=== PATIENT | male | born 1980 | race Caucasian/White ===

== ENCOUNTER 2018-09-25 10:46 | Inpatient (IN) | payer MEDICAID ==
[~2018-09-25] VITALS: Ht 182.9 cm; Wt 64.4 kg
[2018-09-25 11:14] VITALS: Ht 182.9 cm; Wt 64.4 kg
--- NOTE | 2018-09-25 12:44 | NUR ---
PT PRESENTS TO ED WALK IN WITH C/O ABDOMINAL PAIN/RECTAL BLEEDING X3 DAYS. PT STS NO USE OF BLOOD THINNERS AND NO HX OF HEMORRHOIDS (FATHER HAD HX OF HEMORRHOIDS). STS THIS AM HAD DIARRHEA BUT PAST TWO BM'S WERE NORMAL. DENIES N/V. STATES BLOOD IS BRIGHT RED AND MODERATE AMOUNT. HAS HAD EPISODES OF SCANT RED BLOOD A FEW MONTHS AGO BUT NEVER THIS MUCH.
--- NOTE | 2018-09-25 13:21 | NUR ---
MSE COMPLETED BY DR COLEMAN. ASSISTED DR COLEMAN WITH RECTAL EXAM. PT TOLERATED.
[2018-09-25 13:45] LABS: microscopic required? NO
[2018-09-25 13:55] LABS: BASOPHIL % 1.2 % (0-2); PLATELET COUNT 145 x10^3mcL (130-400); RED CELL DISTRIBUTION WIDTH 12.7 % (11.5-14.5)
[2018-09-25 14:03] LABS: CALCIUM 8.8 mg/dL (8.5-10.1); CARBON DIOXIDE 27.9 mmol/L (21-32); CHLORIDE SERUM 103 mmol/L (98-107); CREATININE SERUM 0.8 mg/dL (0.7-1.3); GFR1 > 60 mL/min; GLUCOSE SERUM 89 mg/dL (74-106); POTASSIUM SERUM 3.8 mmol/L (3.5-5.1); SODIUM SERUM 137 mmol/L (136-145)
[2018-09-25 14:07] LABS: ALBUMIN 3.8 g/dL (3.4-5.0); ALKALINE PHOSPHATASE 61 U/L (46-116); ALT/SGPT 21 U/L (16-63); AST/SGOT 16 U/L (15-37); BILIRUBIN TOTAL 0.8 mg/dL (0.20-1.00); LIPASE 80 IU/L (73-393); TOTAL PROTEIN, SERUM 7.1 g/dL (6.4-8.2)
[2018-09-25 14:07] LABS: UA SPECIFIC GRAVITY <=1.005 (1.005-1.035); urine erythrocyte NEGATIVE (NEGATIVE)
--- NOTE | 2018-09-25 16:52 | NUR ---
REPORT GIVEN TO NOAM JAY. ALL QUESTIONS ADDRESSED.
[2018-09-25 17:01] LABS: MAGNESIUM 1.8 mg/dL (1.8-2.4); PHOSPHOROUS 3.1 mg/dL (2.5-4.9)
--- NOTE | 2018-09-25 17:20 | NUR ---
RECEIVED PT VIA W/C FROM E/D, ACCOMPANIED BY RN AND PT'S GIRLFRIEND, RODRIGO DEJESUS. PT A/A/O X 4, CALM, COOPERATIVE. AMBULATORY WITHOUT GAIT OR BALANCE IMPAIRMENT. DENIES CHEST PAIN OR DISCOMFORT AT THIS TIME. NO ACUTE RESPIRATORY DISTRESS NOTED. ABD SOFT, FLAT, TENDERNESS UPON PALPATION TO BUQ W/ INTERMITTENT SHARP PAIN /10 AND REPORTS BLOOD TINGED DIARRHEA, LAST BM 09/25/18, HYPERACTIVE BOWEL SOUNDS AND TYMPANY UPON PERCUSSION X 4 QUADS; PT W/ PARTIAL UPPER DENTURES. IV SITE RAC 20G, CDI. ORIENTED PT AND GIRLFRIEND TO ROOM, BED CONTROLS, CALL LIGHT SYSTEM. SIDE RAILS UP X 2, BED IN LOW POSITION. WILL ENDORSE TO PIERRE SANTACRUZ.
[2018-09-25 17:29] VITALS: BP 127/51
--- NOTE | 2018-09-25 18:36 | NUR ---
PT RESTING IN BED, AAOX4. REPORTED MILD EPIGASTRIC PAIN, RATED 4/10, BUT TOLERABLE AT THIS TIME. IV TO RFA W/ NO ERYTHEMA, IV NS AT 100ML/HR STARTED, INFUSING WELL. MEDICATED ORDERED. CALM AND COMPLIANT W/ CARE. BED IN LOWEST POSITION AND CALL LIGHT WITHIN REACH. WILL ENDORSE TO ONCOMING NURSE.
--- NOTE | 2018-09-25 19:21 | NUR ---
RECEIVED PT FROM PREVIOUS SHIFT RN. MEDSURG. ISAAC. CROATIAN-SPEAKING. REMINDED PT OF NPO STATUS FOR POSSIBLE PROCEDURE. PT VERBALIZED UNDERSTANDING. DENIES HEADACHE/DIZZINESS. NO SOB, BREATHING E/U ON RA. NO S/S ACUTE DISTRESS. DENIES CP. NO EDEMA NOTED. IV SITE CDI, IVF INFUSING WELL, NO ERYTHEMA OR SWELLING. CALL LIGHT WITHIN REACH. WILL CONTINUE TO MONITOR.
[2018-09-25 20:29] VITALS: BP 112/48
--- NOTE | 2018-09-26 01:01 | NUR ---
PT RESTING IN BED WITH EYES CLOSED. BREATHING E/U. NO S/S ACUTE DISTRESS. REMAINS NPO. CALL LIGHT WITHIN REACH. WILL CONTINUE TO MONITOR.
[2018-09-26 02:39] LABS: AMPHETAMINE QUAL UR NONE DETECTED (See below)
[2018-09-26 05:26] VITALS: BP 106/58
--- NOTE | 2018-09-26 06:05 | NUR ---
PT C/O 5/10 CRAMPING IN BLE, WORSENS AT NIGHT. MEDICATED PER EMAR.
[2018-09-26 06:16] LABS: CALCIUM 8.8 mg/dL (8.5-10.1); CARBON DIOXIDE 30.6 mmol/L (21-32); CHLORIDE SERUM 105 mmol/L (98-107); CREATININE SERUM 0.8 mg/dL (0.7-1.3); GFR1 > 60 mL/min; GLUCOSE SERUM 83 mg/dL (74-106); POTASSIUM SERUM 4.1 mmol/L (3.5-5.1); SODIUM SERUM 139 mmol/L (136-145)
[2018-09-26 06:22] LABS: BASOPHIL % 0.8 % (0-2); PLATELET COUNT 134 x10^3mcL (130-400); RED CELL DISTRIBUTION WIDTH 12.5 % (11.5-14.5)
--- NOTE | 2018-09-26 06:57 | NUR ---
PT HAD RESTFUL NIGHT. DENIES PAIN. BREATHING E/U. NO S/S ACUTE DISTRESS. ALL NEEDS MET AND ATTENDED TO. NPO STATUS MAINTAINED. NO CHANGES OVERNIGHT. CALL LIGHT WITHIN REACH. WILL ENDORSE TO ONCOMING SHIFT.
--- NOTE | 2018-09-26 07:27 | NUR ---
RECEIVED PT SITTING UP IN BED. NO ACUTE DISTRESS. AAOX4. RESP EVEN AND UNLABORED ON RA. NPO EXCEPT MEDS. NO C/O ABD PAIN OR BM AT THIS TIME. IVF INFUSING, NO REDNESS OR SWELLING TO IV SITE. AT BEDSIDE. BED IN LOW POSITION, CALL LIGHT WITHIN REACH. WILL CONTINUE TO MONITOR.
[2018-09-26 09:22] VITALS: BP 111/38
--- NOTE | 2018-09-26 09:29 | NUR ---
PT WENT DOWN TO GI LAB IN NO ACUTE DISTRESS.
--- NOTE | 2018-09-26 10:55 | NUR ---
PT BACK FROM GI LAB. DROWSY BUT AROUSABLE. RESP EVEN AND UNLABORED ON RA. NO C/O PAIN. IV TO RAC WITH NO REDNESS OR SWELLING. HOB SLIGHTLY ELEVATED. AT BEDSIDE. CALL LIGHT WITHIN REACH. WILL CONTINUE TO MONITOR.
--- NOTE | 2018-09-26 14:19 | NUR ---
PT REPORTED 2 BMS, DIARRHEA. INFORMED CONSENT FOR COLONOSCOPY SIGNED AND PLACED IN CHART. TOLERATED CLEAR LIQUID DIET. IVF INFUSING, NO REDNESS OR SWELLING. CALL LIGHT WITHIN REACH. WILL CONTINUE TO MONITOR.
--- NOTE | 2018-09-26 15:00 | NUR ---
Discount pharmacy card and list to low cost medical clinics given to patient by Mandy.
[2018-09-26 17:00] VITALS: BP 95/54
--- NOTE | 2018-09-26 18:32 | NUR ---
PT SITTING UP IN BED. NO ACUTE DISTRESS. AAOX4. RESP EVEN AND UNLABORED ON RA. NO C/O ABD PAIN. PT AWARE OF NPO AFTER MIDNIGHT STATUS. IVF INFUSING, NO REDNESS OR SWELLING. AT BEDSIDE. BED IN LOW POSITION, CALL LIGHT WITHIN REACH. WILL ENDORSE TO ONCOMING SHIFT.
--- NOTE | 2018-09-26 19:25 | NUR ---
RECEIVED PT FROM PREVIOUS SHIFT RN. MEDSURG. ISAAC. TAJIK-SPEAKING. PT STARTED ON BOWELPREP, VERBALIZED UNDERSTANDING OF SCHEDULED PROCEDURE TOMORROW AND NPO STATUS. DENIES HEADACHE/DIZZINESS. NO S/S ACUTE DISTRESS. DENIES CP. NO EDEMA NOTED. DENIES ABD PAIN. PT REPORTING MULTIPLE LOOSE STOOLS, TOLD PT TO CALL RN WHEN BM STARTS TO CLEAR UP. PT AND VERBALIZED UNDERSTANDING. IV SITE CDI, IVF INFUSING WELL, NO ERYTHEMA OR SWELLING. CALL LIGHT WITHIN REACH. WILL CONTINUE TO MONITOR.
[2018-09-26 20:16] VITALS: BP 100/29
--- NOTE | 2018-09-27 00:02 | NUR ---
PT RESTING IN BED WITH EYES CLOSED. NO S/S ACUTE DISTRESS. CHEST RISE/FALL EQUAL. SAFETY MEASURES IN PLACE. CALL LIGHT WITHIN REACH. WILL CONTINUE TO MONITOR.
--- NOTE | 2018-09-27 02:48 | NUR ---
PROVIDED PT SECOND DOSE OF BOWEL PREP. INSTRUCTED PT ON NEED TO FINISH BOWEL PREP BEFORE PROCEDURE. PT VERBALIZED UNDERSTANDING. WILL CONTINUE TO MONITOR.
--- NOTE | 2018-09-27 04:21 | NUR ---
PT COMPLETED BOWEL PREP. PT BM CLEAR YELLOW IN COLOR WITH NO SEDIMENT NOTED.
[2018-09-27 05:16] VITALS: BP 112/61
--- NOTE | 2018-09-27 05:35 | NUR ---
PT C/O RECTUM IRRITATION DUE TO HAVING MULTIPLE BMS. PT DENIES BLOOD WHEN WIPING, JUST STATES "IT FEELS LIKE A RASH". AT BEDSIDE HELPED TRANSLATE FOR PT. DR. ALFORD MADE AWARE. WAITING FOR ORDERS.
--- NOTE | 2018-09-27 06:08 | NUR ---
PT HAD RESTFUL NIGHT. DENIES PAIN. NO S/S ACUTE DISTRESS. PT AWARE OF NPO STATUS AND COLOSCOPY PROCEDURE PLANNED LATER. BM CLEAR OF SEDIMENT AND WATERY YELLOW. ALL NEEDS MET AND ATTENDED TO. NO CHANGES OVERNIGHT. CALL LIGHT WITHIN REACH. WILL ENDORSE TO ONCOMING SHIFT.
--- NOTE | 2018-09-27 07:18 | NUR ---
REPORT GIVEN TO PIERRE CASTRO. ALL QUESTIONS AND CONCERNS ADDRESSED.
[2018-09-27 07:28] LABS: BASOPHIL % 0.5 % (0-2); PLATELET COUNT 136 x10^3mcL (130-400); RED CELL DISTRIBUTION WIDTH 12.4 % (11.5-14.5)
[2018-09-27 07:34] LABS: CALCIUM 8.6 mg/dL (8.5-10.1); CARBON DIOXIDE 19.7 mmol/L (21-32); CHLORIDE SERUM 108 mmol/L (98-107); CREATININE SERUM 0.8 mg/dL (0.7-1.3); GFR1 > 60 mL/min; GLUCOSE SERUM 95 mg/dL (74-106); POTASSIUM SERUM 3.9 mmol/L (3.5-5.1); SODIUM SERUM 141 mmol/L (136-145)
[2018-09-27 10:21] VITALS: BP 111/54
--- NOTE | 2018-09-27 10:57 | NUR ---
AT 0715 - RECEIVED CALL FROM NIGHT NURSE. PATIENT AWAKE, ALERT AND ORIENTED. SITTING UP IN BED. REPROTED CLEAR BM AFTER COMPLETION OF BOWEL PREP. IV INFUSING NS AT 100 ML/HR. AT 0830 - IV INFUSION CHANGED TO 70 ML/HR PER NEW ORDER. PATIENT'S AT BEDSIDE. C/O R LEG CRAMPING. MEDICATED WITH TYLANOL PER EMAR. AT 1010 - RECEIVED CALL FROM GI LAB. REPORT GIVEN TO PIERRE. CECILY PALUMBO OF R PAIN. AT 1045 - PATIENT TAKEN TO GI LAB FOR COLONOSCOPY.
[2018-09-27] MEDS ORDERED: AMOXICILLIN500 M1 PO (14:15)
[2018-09-27] MEDS ORDERED: CLARITHROMYCIN500 M1 PO (14:16)
[2018-09-27] MEDS ORDERED: LAC PO (14:17)
[2018-09-27] MEDS ORDERED: PROTONIX40 MG PO (14:18)
--- NOTE | 2018-09-27 14:18 | NUR ---
Initial Nutrition Assessment: Paul Epperson Dx: Abdominal pain, rectal bleeding, diverticulosis PMHx: None PSHx: None Labs: Cl 108H, CO2 19.7L, Hct 40L Meds: Cephulac, Protonix packet, Sodium Chl 0.9%, Suprep bowel prep kit, Zofran Diet: NPO (procedure planned) PO Intake: None due to NPO Ht: 182.88cm, 72in Wt: 64.41kg, 141# BMI: 19.3kg/m2 (Normal) Bed scale: did not take because was standing by his bed. IBW: 77.6kg, 170# %IBW: 82% UBW: 144# Age: 37/M Food Allergies: NKA Skin: Intact Chris: 22 Edema: None GI: Last BM: 3 on 09/27/18 Per H&P: Pt is 37 yo M with no significant PMH came in with cc of 2 days of worsening rectal bleeding. Pt described it as bright blood in big amount. Pt also admitted to epigastric pain, 5/10 that started 3 days ago, 1 day prior to rectal bleeding. Pain is nonradiating, dull, worse with moving aroung. Pt tried Motrin at home with partial relief. Positive 1 episode of loose stool today mixed with blood. Pt said that he had episodes of some blood in stool in the past but not as severe. Denies any h/o hemorrhoids. Otherwise, pt denies any lower abdominal pain, diarrhea, sick contacts, dizziness, chest pain, SOB or h/o anemia. No fatigue/malaise or weight loss. No fever/chills. Pt denies any family h/o colon cancer. Pt Visit: Pt was up and walking around at time of visit with at bedside. Pt states was hungry, but was aware he could not eat foods at the moment due to procedure. He says he used to hike and ride his bike weekly and when he stopped he felt he lost weight. Pt states that before coming to the hospital he would be really constipated and would have the urge to go, but nothing would come out. He said when he finally would go to the bathroom his toliet paper would be covered in blood. He was very happy to recieve the [facility] handout on high fiber foods and he said he would try and add them to his diet along with water. Problem with: N: None V: None D: None C: None Problems with: Chewing: None Swallowing: None Current appetite: Good Recent wt change: None %wt change: None Vitamin/Supplement use: None Special diet at home: None Physical activity: Currently only walks 3-4x/wk for 15 mins. Education: Offered [facility] hanout on high fiber foods. Went over goal intake of 38g of fiber a day based on age. Showed the patient the portion size and grams of fiber per food on the handout. The patient said he would start adding some of the foods to his meals along with a cup of water at each meal. Patient also said that when he fel better would try to exercise again as well. Estimated Nutritional Needs Based on actual body weight 64.41kg Energy: 1610-1932kcal/d (25-30kcal/kg) (For maintenance) Protein: 51-77g/d (0.8-1.2g/kg) (For maintenance) Fluid: 1610-1932ml/d (1 ml/kcal) or per doctor Nutrition Diagnosis 1. Inadequate fiber intake r/t constipation aeb reported inadequate fiber intake per pt. Intervention 1. High fiber diet education ([facility] handout) Monitor/Evaluate Goal: PO intake at least 75% of estimated needs Monitor: PO intake, Labs, GI function, tolerance of diet F/U 09/30-10/02
--- NOTE | 2018-09-27 14:19 | NUR ---
Intervention 1. High fiber diet education ([facility] handout given)
--- NOTE | 2018-09-27 14:20 | NUR ---
AT 1330 - PATIENT BACK IN ROOM FOLLOWING COLONOSCOPY UNDER MODERATE SEDATION. AWAKE, ALERT AND ORIENTED. VS WNL. WILL EAT LUNCH. AT 1400 - HAS EATEN LUNCH. TOLERATED WELL. IV INFUSION HAS BEEN DISCONTINUED. IV SALINE LOCKED.
[2018-09-27 16:36] VITALS: BP 91/52
--- NOTE | 2018-09-27 17:36 | NUR ---
AT 1710 - PRINTED DISCHARGE INSTRUCTIONS GIVEN AND EXPLAINED TO PATIENT AND . PRESCRIPTION PROVIDED. IV CATHETER REMOVED INTACT. PREPARED FOR DISCHARGE. WILL EAT DINNER PRIOR TO LEAVING.
[2018-09-27 18:10] VITALS: BP 102/52
--- NOTE | 2018-09-27 18:25 | NUR ---
AT 1815 - DISCHARGED HOME WITH . TAKEN TO CAR IN WHEELCHAIR BY [place].
== END 2018-09-27 18:51 | disposition home or self-care (01) | DRG 254 ==
LOC: EDSEX 10:46 → ED 10:46 → MU 16:04
PROVIDERS: Emergency Medicine; Internal Medicine Gastroenterology; ADMIT Internal Medicine
PROC: 0DB78ZX Excision of Stomach, Pylorus, Via Natural or Artificial Opening Endoscopic, Diagnostic (ICD-10-PCS; principal; 2018-09-26 09:00)
PROC: 0DJD8ZZ Inspection of Lower Intestinal Tract, Via Natural or Artificial Opening Endoscopic (ICD-10-PCS; 2018-09-27)
DX: K64.8 Other hemorrhoids (principal); R64 Cachexia; A04.8 Other specified bacterial intestinal infections; K25.4 Chronic or unspecified gastric ulcer with hemorrhage; K56.7 Ileus, unspecified; K57.30 Diverticulosis of large intestine without perforation or abscess without bleeding; Z68.1 Body mass index [BMI] 19.9 or less, adult; K29.80 Duodenitis without bleeding; D18.09 Hemangioma of other sites; F10.20 Alcohol dependence, uncomplicated; F17.210 Nicotine dependence, cigarettes, uncomplicated; Y90.0 Blood alcohol level of less than 20 mg/100 ml
CPT/HCPCS: 43235; 45378; 99406; C9113; J1200; J1610; J2250; J2310; J3010; J3490; J7030; Q0092; Q9967